=== PATIENT | male | born 1970 | race Two or more races ===

== ENCOUNTER 2020-08-25 11:25 | Emergency (ER) | payer BC ==
--- NOTE | 2020-08-25 11:45 | PDOC ---
Rapid Medical Evaluation Time Seen by Provider: 08/25/20 11:42 Medical Evaluation: 08/25/20 11:43 I performed a brief in-person evaluation of this patient. Pt is a 50 y/o male with h/o complaint of L ear pain x 5 days. He complaint of drainage and ear swelling. Pt denies any fevers. Pertinent physical exam findings: L ear swelling and drainage appreciated. I have ordered the following: none Patient to proceed to ED for further evaluation. Discharge Disposition - Diagnosis Left ear pain - Referrals - Patient Instructions - Post Discharge Activity
[2020-08-25 11:55] VITALS: BP 127/68; PULSE 73; TEMP 98.2; BMI 24.7
--- OUTSIDE RECORDS SUMMARY | 2020-08-25 11:59 | XMS ---
:1970 Author Organization [facility] Support Name Relationship Address Phone [employer] Unavailable [address] [place] [address] NA Unavailable Unavailable Unavailable [facility] [address] [place] [address] Re-disclosure Warning The records that you are about to access may contain information from federally- assisted alcohol or drug abuse programs. If such information is present, then the following federally mandated warning applies: This information has been disclosed to you from records protected by federal confidentiality rules (42 CFR part 2). The federal rules prohibit you from making any further disclosure of this information unless further disclosure is expressly permitted by the written consent of the person to whom it pertains or as otherwise permitted by 42 CFR part 2. A general authorization for the release of medical or other information is NOT sufficient for this purpose. The Federal rules restrict any use of the information to criminally investigate or prosecute any alcohol or drug abuse patient.The records that you are about to access may contain highly sensitive health information, the redisclosure of which is protected by Article 27-F of the [facility] Public Health law. If you continue you may haveaccess to information: Regarding HIV / AIDS; Provided by facilities licensed or operated by the [facility] Office of Mental Health; or Provided by the [facility] Office for People With Developmental Disabilities. If such information is present, then the following [facility] mandated warning applies: This information has been disclosed to you from confidential records which are protected by state law. State law prohibits you from making any further disclosure of this information without the specific written consent of the person to whom it pertains, or as otherwise permitted by law. Any unauthorized further disclosure in violation of state law may result in a fine or usp sentence or both. A general authorization for the release of medical or other information is NOT sufficient authorization for further disclosure. Insurance Providers Payer name Policy type / Policy ID Covered Covered alliance party's Policy Plan Coverage type alliance party ID relationship to [employer] POS [id number] SP [id number] C I G N A O [id number] H M O 1 C I G N A O [id number] H M O 1
--- NOTE | 2020-08-25 12:12 | PDOC ---
History of Present Illness - General Chief Complaint: Pain Stated Complaint: LT EAR INFECTION Time Seen by Provider: 08/25/20 11:42 - History of Present Illness Initial Comments: 08/25/20 12:09 50-year-old male denies comorbidities presents for left ear pain x1 week recently increasing over the last 3 days he does have drainage from his ear. Past History - Medical History Allergies/Adverse Reactions: Allergies Allergy/AdvReac Type Severity Reaction Status Date / Time No Known Allergies Allergy Unverified 08/25/20 11:46 Home Medications: Ambulatory Orders Ciprofloxacin HCl/Dexameth [Ciprodex Otic Suspension] 7.5 ml OT BID 5 Days #1 drops.susp 08/25/20 Ibuprofen [Motrin -] 600 mg PO TID #30 tablet 08/25/20 Oxycodone HCl/Acetaminophen [Percocet 5-325 mg Tablet] 1 - 2 tab PO Q6H PRN #20 tab MDD 6 08/25/20 COPD: No - Psycho-Social/Smoking History Smoking History: Never smoked Have you smoked in the past 12 months: No Information on smoking cessation initiated: No - Substance Abuse Hx (Audit-C & DAST Scrn) How often the patient has a drink containing alcohol: Never Score: In Men: 4 or > Positive; In Women: 3 or > Positive: 0 Screen Result (Pos requires Nsg. Audit-10AR): Negative In the last yr the pt used illegal drug/Rx for NonMed reason: No Score: Yes response is considered Positive: 0 Screen Result (Positive result requires Nsg. DAST-10): Negative Review of Systems - Review of Systems Constitutional: No: Fever HEENTM: Yes: Ear Pain *Physical Exam - Vital Signs Last Vital Signs Temp Pulse Resp BP Pulse Ox 98.2 F 73 17 127/68 100 08/25/20 11:45 08/25/20 11:45 08/25/20 11:45 08/25/20 11:45 08/25/20 11:45 - Physical Exam 08/25/20 12:09 GENERAL: The patient is awake, alert, and fully oriented, in no acute distress. HEAD: Normal with no signs of trauma. EYES: sclera anicteric, conjunctiva clear. ENT: Right ear and tympanic membrane are normal left ear canal is edematous with purulent drainage so edematous that the tympanic membrane cannot be visualized. NECK: Normal range of motion EXTREMITIES: Normal range of motion, no edema. No clubbing or cyanosis. No cords, erythema, or tenderness. NEUROLOGICAL: Cranial nerves II through XII grossly intact. PSYCH: Normal mood, normal affect. SKIN: Warm, Dry, normal turgor, no rashes or lesions noted. Medical Decision Making - Medical Decision Making 08/25/20 12:10 Ciprodex for otitis externa Percocet for pain Motrin for pain. I do not suspect an otitis media there are no systemic symptoms or upper respiratory symptoms I have reviewed the pathophysiology with the patient. They are in agreement wi th the treatment plan all questions were answered to their satisfaction. Understanding for follow-up without fail was also conveyed to the patient. Again they are in agreement. Discharge - Discharge Information Problems reviewed: Yes Clinical Impression/Diagnosis: Left ear pain, Otitis externa Condition: Stable Disposition: HOME - Admission No - Additional Discharge Information Prescriptions: Ciprofloxacin HCl/Dexameth [Ciprodex Otic Suspension] 7.5 ml OT BID 5 Days #1 drops.susp Ibuprofen [Motrin -] 600 mg PO TID #30 tablet Oxycodone HCl/Acetaminophen [Percocet 5-325 mg Tablet] 1 - 2 tab PO Q6H PRN #20 tab MDD 6 PRN Reason: Pain - Follow up/Referral Referrals: Ang James MD [Staff Physician] - - Patient Discharge Instructions Additional Instructions: Return to the emergency room for worsening symptoms and without fail follow-up with ear nose and throat doctor in 1 to 2 days for further evaluation and treatment options. If you cannot get in with ear nose and throat doctor please return to the emergency room for recheck in 48 hours. Sooner if problems develop. Please take the pain medication as prescribed as well as the antibiotic and Motrin. Do not take any other medications on top of the prescribed medicine. - Post Discharge Activity
== END 2020-08-25 12:16 | disposition home or self-care (01) ==
LOC: JERFT 11:25
DX: H92.02 Otalgia, left ear (principal)
CPT/HCPCS: 99282-25